=== PATIENT | female | born 1970 | race Two or more races ===

== ENCOUNTER 2019-02-17 10:40 | Day surgery (SDC) | payer MEDICAID ==
[~2019-02-17] VITALS: Ht 160 cm; Wt 77.1 kg
[~2019-02-17 10:40] MED LIST: DOCU-138 PO; FERR325T6 PO; LACTATED RINGERS 1,000 ML IV SCH; LORA10TA7 PO
[2019-02-17 12:03] LABS: BASOPHILS % 2.4 % (0.0-2.0); EOSINOPHILS % 0.4 % (0.0-5.0); HEMOGLOBIN. 8.6 g/dL (12.0-16.0); LYMPHOCYTES % 22.5 % (20.0-50.0); MEAN CORPUSCULAR HEMOGLOBIN 28.5 pg (28.0-32.0); MEAN CORPUSCULAR VOLUME 89.2 fL (81.0-99.0); MEAN PLATELET VOLUME 8.3 fl (7.4-10.4); MONOCYTES % 7.4 % (2.0-8.0); NEUTROPHILS % 67.3 % (40.0-76.0); PLATELET 270 x1000/uL (130-400); RED BLOOD CELL COUNT 3.03 mill/uL (4.2-5.4); RED CELL DISTRIBUTION WIDTH 17.9 % (11.6-14.6)
[2019-02-17 12:08] LABS: CHLORIDE 107 mEq/L (98-107)
[2019-02-17 12:10] LABS: PROTHROMBIN TIME 10.2 sec (9.6-11.0)
[2019-02-17] MEDS ORDERED: FENTANYL CITRATE/PF 50MCG/ML 2ML VIAL ONE (12:12)
[2019-02-17] MEDS ORDERED: PROPOFOL 200MG/20ML VIAL IV ONE (12:12)
[2019-02-17] MEDS ORDERED: ONDANSETRON HCL 4MG/2ML INJ ONE (12:12)
[2019-02-17] MEDS ORDERED: LIDOCAINE HCL/PF 1% 10 MG/ML 5ML VIAL ONE (12:12)
[2019-02-17] MEDS ORDERED: METOCLOPRAMIDE HCL 10MG/2ML VIAL ONE (12:12)
[2019-02-17] MEDS ORDERED: SUCCINYLCHOLINE CHLORIDE 200MG/10ML IV ONE (12:12)
[2019-02-17] MEDS ORDERED: MIDAZOLAM HCL 2 MG/2 ML VIAL ONE (12:12)
[2019-02-17] MEDS ORDERED: GLYCOPYRROLATE 0.2 MG/ML 2ML VIAL ONE (12:12)
[2019-02-17 12:15] LABS: HCG SCREEN NEGATIVE
[2019-02-17] MEDS ORDERED: MORPHINE SULFATE 2 MG/ML CPJ (NOT FOR IM USE) IV PRN (13:00)
[2019-02-17] MEDS ORDERED: ONDANSETRON HCL 4MG/2ML INJ IV PRN (13:00)
[2019-02-17] MEDS ORDERED: MEPERIDINE HCL/PF 25MG/ML CPJ IV PRN ×2 (13:00)
[2019-02-17] MEDS ORDERED: HYDROMORPHONE HCL/PF 2MG/ML CPJ IV PRN (13:00)
[2019-02-17] MEDS ORDERED: SODIUM CHLORIDE 0.9% 1,000 ML IV NR (13:35)
== END 2019-02-17 14:10 | disposition home or self-care (01) ==
LOC: OR 10:40
PROVIDERS: ATTEND Obstetrics & Gynecology
DX: N92.0 Excessive and frequent menstruation with regular cycle (principal); D25.9 Leiomyoma of uterus, unspecified; Z79.899 Other long term (current) drug therapy; F17.200 Nicotine dependence, unspecified, uncomplicated
CPT/HCPCS: 36415; 58558; 80053; 84703; 85025; 85610; 85730; 86850; 86900; 86901; 88305; J0330; J2250; J2405; J2704; J2765; J3010; J3490

== ENCOUNTER 2019-05-23 06:55 | Day surgery (SDC) | payer MEDICAID ==
[~2019-05-23] VITALS: Ht 160 cm; Wt 77.1 kg
[~2019-05-23 06:55] MED LIST changes: -LACTATED RINGERS 1,000 ML IV SCH
[2019-05-23] MEDS ORDERED: METHYLENE BLUE 50 MG/10 ML AMP IV ONE (07:41)
[2019-05-23] MEDS ORDERED: VASOPRESSIN 20 UNIT/ML 1ML ONE (07:41)
[2019-05-23] MEDS ORDERED: LACTATED RINGERS 1,000 ML IV SCH (07:45)
[2019-05-23 08:01] LABS: UCG SCREEN NEGATIVE
[2019-05-23 08:05] LABS: CHLORIDE 108 mEq/L (98-107)
[2019-05-23 08:07] LABS: PARTIAL THROMBOPLASTIN TIME 24.2 sec (23.4-31.0); PROTHROMBIN TIME 10.4 sec (9.6-11.0)
[2019-05-23 08:11] LABS: MEAN CORPUSCULAR HEMOGLOBIN 22.9 pg (28.0-32.0); MEAN CORPUSCULAR VOLUME 73.9 fL (81.0-99.0); MEAN PLATELET VOLUME 8.2 fl (7.4-10.4); PLATELET 344 x1000/uL (130-400); RED BLOOD CELL COUNT 2.74 mill/uL (4.2-5.4); RED CELL DISTRIBUTION WIDTH 20.2 % (11.6-14.6)
[2019-05-23 08:18] LABS: HEMOGLOBIN. 6.3 g/dL (12.0-16.0)
[2019-05-23 08:19] LABS: HEMATOCRIT. 20.2 % (36.0-48.0)
[2019-05-23 09:04] LABS: PLATELET ESTIMATE NORMAL
[2019-05-23 09:49] LABS: MEAN CORPUSCULAR VOLUME 74.6 fL (81.0-99.0); PLATELET 346 x1000/uL (130-400); RED CELL DISTRIBUTION WIDTH 20.3 % (11.6-14.6)
[2019-05-23 09:57] LABS: HEMATOCRIT 20.1 % (36.0-48.0); HEMOGLOBIN 6.2 g/dL (12.0-16.0)
[2019-05-23] MEDS ORDERED: HYDRALAZINE 20MG/ML VIAL ONE (11:31)
[2019-05-23] MEDS ORDERED: DIPHENHYDRAMINE 50MG/ML VIAL ONE (11:32)
[2019-05-23] MEDS ORDERED: DIPHENHYDRAMINE 50MG/ML VIAL IV ONE (11:45)
[2019-05-23] MEDS ORDERED: DIPHENHYDRAMINE 50MG/ML VIAL IV NR (11:45)
[2019-05-23] MEDS ORDERED: HYDRALAZINE 20MG/ML VIAL IV NR (11:45)
[2019-05-23] MEDS ORDERED: HYDRALAZINE 20MG/ML VIAL IV ONE ×2 (11:45→12:15)
[2019-05-23 12:16] LABS: HEMATOCRIT 23.2 % (36.0-48.0); HEMOGLOBIN 7.5 g/dL (12.0-16.0); MEAN CORPUSCULAR HEMOGLOBIN 24.5 pg (28.0-32.0); MEAN CORPUSCULAR VOLUME 75.8 fL (81.0-99.0); PLATELET 335 x1000/uL (130-400); RED BLOOD CELL COUNT 3.06 mill/uL (4.2-5.4); RED CELL DISTRIBUTION WIDTH 20.5 % (11.6-14.6)
[2019-05-23 12:29] LABS: CLARITY URINE CLEAR (CLEAR); COLOR URINE YELLOW (YELLOW); KETONES URINE 1+ (NEGATIVE); LEUKOCYTE ESTERASE URINE NEGATIVE (NEGATIVE); NITRITE URINE NEGATIVE (NEGATIVE); OCCULT BLOOD URINE 3+ (NEGATIVE); PROTEIN URINE TRACE (NEGATIVE); SPECIFIC GRAVITY URINE 1.018 (1.005-1.030); UROBILINOGEN URINE 0.2 E.U./dL (0.2-1.0)
[2019-05-23] MEDS ORDERED: FENTANYL CITRATE/PF 50MCG/ML 2ML VIAL ONE (12:39)
[2019-05-23] MEDS ORDERED: MIDAZOLAM HCL 2 MG/2 ML VIAL ONE (12:39)
[2019-05-23] MEDS ORDERED: LIDOCAINE HCL/PF 1% 10 MG/ML 5ML VIAL ONE (12:46)
[2019-05-23] MEDS ORDERED: PROPOFOL 200MG/20ML VIAL IV ONE (12:46)
[2019-05-23] MEDS ORDERED: ROCURONIUM BROMIDE 10MG/ML VIAL 5ML IV ONE (12:49)
[2019-05-23] MEDS ORDERED: ESMOLOL HCL 10MG/ML 10ML VIAL IV ONE (12:52)
[2019-05-23] MEDS ORDERED: METOCLOPRAMIDE HCL 10MG/2ML VIAL ONE (13:25)
[2019-05-23] MEDS ORDERED: DEXAMETHASONE 4MG/ML 1ML VIAL ONE (13:25)
[2019-05-23] MEDS ORDERED: ONDANSETRON HCL 4MG/2ML INJ ONE (13:26)
[2019-05-23] MEDS ORDERED: CEFAZOLIN SODIUM 1000MG/VIAL ONE (13:27)
[2019-05-23] MEDS ORDERED: SODIUM CHLORIDE 0.9% 10ML VIAL ONE ×3 (13:27→13:52)
[2019-05-23] MEDS ORDERED: EPHEDRINE SULFATE 50MG/ML VIAL ONE (13:33)
[2019-05-23] MEDS ORDERED: PHENYLEPHRINE HCL 10 MG/ML 1ML (IV VIAL) IV ONE (13:51)
[2019-05-23] MEDS ORDERED: HYDROMORPHONE HCL/PF 2MG/ML CPJ IV PRN (14:45)
[2019-05-23] MEDS ORDERED: IBUP-2030 MT (15:57)
== END 2019-05-23 16:05 | disposition home or self-care (01) ==
LOC: OR 06:55 → EDSTATUS 09:00 → OR 16:05
PROVIDERS: ATTEND Obstetrics & Gynecology
DX: D25.9 Leiomyoma of uterus, unspecified (principal); N92.4 Excessive bleeding in the premenopausal period; I10 Essential (primary) hypertension; Z79.899 Other long term (current) drug therapy; Z98.891 History of uterine scar from previous surgery; Z98.890 Other specified postprocedural states
CPT/HCPCS: 36415; 58561; 80048; 81003; 81025; 85025; 85027; 85610; 85730; 86850; 86900; 86901; 86920; 88305; J0360; J0690; J1100; J1200; J2250; J2370; J2405; J2704; J2765; J3010; J3490; P9016; Q9968

== ENCOUNTER 2020-10-28 17:06 | Emergency (ER) | payer MEDICAID ==
[~2020-10-28] VITALS: Ht 162.6 cm; Wt 74.0 kg
[~2020-10-28 17:06] MED LIST changes: -DOCU-138 PO; +FERR325T23 PO; -FERR325T6 PO; +IBUP-2030 MT; +LABE200T9 PO; +MULT-1146 MT
[2020-10-28 17:14] VITALS: BP 134/84
== END 2020-10-28 21:29 | disposition left against medical advice (07) ==
LOC: ER 17:06
DX: R68.89 Other general symptoms and signs (principal); Z53.21 Procedure and treatment not carried out due to patient leaving prior to being seen by health care provider

== ENCOUNTER 2023-09-09 21:11 | Emergency (ER) | payer MEDICAID ==
[~2023-09-09] VITALS: Ht 160 cm; Wt 68.0 kg
[2023-09-09 21:43] VITALS: O2SAT 97
[2023-09-10] MEDS: ACETAMINOPHEN 325MG TABLET PO NR (00:50)
[2023-09-10 01:22] LABS: BASOPHILS % 3.1 % (0.0-2.0); EOSINOPHILS % 2.8 % (0.0-5.0); HEMATOCRIT. 25.4 % (36.0-48.0); HEMOGLOBIN. 8.1 g/dL (12.0-16.0); LYMPHOCYTES % 38.7 % (20.0-50.0); MEAN CORPUSCULAR HEMOGLOBIN 26.9 pg (28.0-32.0); MEAN CORPUSCULAR HGB CONC 31.8 g/dL (31.0-37.0); MEAN CORPUSCULAR VOLUME 84.5 fL (81.0-99.0); MONOCYTES % 10.1 % (2.0-8.0); NEUTROPHILS % 45.3 % (40.0-76.0); PLATELET 244 x1000/uL (130-400); RED BLOOD CELL COUNT 3.01 mill/uL (4.2-5.4); RED CELL DISTRIBUTION WIDTH 20.9 % (11.6-14.6); WHITE BLOOD COUNT 7.2 x1000/uL (4.5-11.0)
[2023-09-10 01:45] LABS: ALANINE AMINOTRANSFERASE 26 IU/L (10-49); ALBUMIN 4.8 g/dL (3.2-4.8); ASPARTATE AMINOTRANSFERASE 94 IU/L (<34); BILIRUBIN TOTAL 0.5 mg/dL (0.1-1.0); CALCIUM 9.3 mg/dL (8.7-10.4); CARBON DIOXIDE 26 mEq/L (21-32); CHLORIDE 105 mEq/L (98-107); CREATININE 0.6 mg/dL (0.6-1.0); ETHANOL BLOOD 303 mg/dL (<10); GLUCOSE 90 mg/dL (70-105); POTASSIUM 3.9 mEq/L (3.5-5.1); SODIUM 139 mEq/L (136-145); UREA NITROGEN BLOOD 13 mg/dL (9-23)
[2023-09-10 01:48] LABS: PROTEIN TOTAL 9.2 g/dL (6.0-8.3)
[2023-09-10] MEDS ORDERED: NAPR-681 PO (02:02)
[2023-09-10] MEDS ORDERED: AMOX1TAB16 MT (02:02)
[2023-09-10 02:32] VITALS: BP 138/96; PULSE 85; RESP 16; TEMP 97.7
== END 2023-09-10 02:38 | disposition home or self-care (01) ==
LOC: ER 21:11
DX: S61.451A Open bite of right hand, initial encounter (principal); M79.641 Pain in right hand; R60.9 Edema, unspecified; D64.9 Anemia, unspecified; W54.0XXA Bitten by dog, initial encounter; Y93.89 Activity, other specified; Y92.89 Other specified places as the place of occurrence of the external cause; Y99.8 Other external cause status
CPT/HCPCS: 36415; 73030; 73130; 80053; 80320; 83605; 84145; 85025; 93971; 99284; G0480

== ENCOUNTER 2025-06-11 16:14 | Emergency (ER) | payer MEDICAID ==
[~2025-06-11] VITALS: Ht 160 cm; Wt 66.0 kg
[~2025-06-11 16:14] MED LIST changes: -IBUP-2030 MT
[2025-06-11 16:24] VITALS: TEMP 36.8; O2SAT 100
[2025-06-11 18:14] LABS: HEMATOCRIT. 26.2 % (36.0-48.0); HEMOGLOBIN. 8.3 g/dL (12.0-16.0); MEAN PLATELET VOLUME 8.7 fl (7.4-10.4); PLATELET 169 x1000/uL (130-400); RED BLOOD CELL COUNT 3.35 mill/uL (4.2-5.4); RED CELL DISTRIBUTION WIDTH 23.5 % (11.6-14.6)
[2025-06-11 18:29] LABS: CREATININE 0.5 mg/dL (0.6-1.0)
[2025-06-11 18:30] LABS: ETHANOL BLOOD < 10 mg/dL (<10); PROTEIN TOTAL 8.4 g/dL (6.0-8.3); UREA NITROGEN BLOOD 6 mg/dL (9-23)
[2025-06-11 18:31] LABS: ASPARTATE AMINOTRANSFERASE 184 IU/L (<34)
[2025-06-11 18:32] LABS: BILIRUBIN DIRECT 1.5 mg/dL (<=3.0); BILIRUBIN TOTAL 2.9 mg/dL (0.1-1.0)
[2025-06-11 18:33] LABS: HCG SCREEN NEGATIVE
[2025-06-11 18:36] LABS: EOSINOPHILS % MANUAL 3.0 % (0.0-5.0); LYMPHOCYTES % MANUAL 18.0 % (20.0-60.0); MONOCYTES % MANUAL 13.0 % (2.0-8.0); NEUTROPHILS % MANUAL 66.0 % (45.0-75.0); PLATELET ESTIMATE NORMAL
[2025-06-11 19:41] LABS: *AMPHETAMINES SCREEN URINE NEGATIVE (NEGATIVE); *BARBITURATES SCREEN URINE NEGATIVE (NEGATIVE); *BENZODIAZEPINES SCREEN URINE NEGATIVE (NEGATIVE)
[2025-06-11 19:42] LABS: *COCAINE SCREEN URINE NEGATIVE (NEGATIVE); CANNABINOID URINE SCREEN PRESUMPTIVE POSITIVE (NEGATIVE); ECSTASY MDMA SCREEN URINE NEGATIVE (NEGATIVE); METHADONE URINE SCREEN NEGATIVE (NEGATIVE); OPIATES URINE SCREEN NEGATIVE (NEGATIVE); PHENCYCLIDINE URINE SCREEN NEGATIVE (NEGATIVE)
[2025-06-11 20:19] LABS: INR 1.3
[2025-06-11] MEDS: HYDROCODONE/ACETAMINOPHEN 5/325MG TABLET PO ONE (20:22)
[2025-06-11 22:15] VITALS: BP 155/78; PULSE 81; RESP 18; O2SAT 100
== END 2025-06-11 22:37 | disposition short-term general hospital (02) ==
LOC: ER 16:14 → EDBEDREQ 21:13 → EDBEDREQTM 21:13 → ER 22:37 → CMPBEDREQ 22:49
DX: K74.60 Unspecified cirrhosis of liver (principal); R18.8 Other ascites; D64.9 Anemia, unspecified; R06.02 Shortness of breath; F17.200 Nicotine dependence, unspecified, uncomplicated; Z79.899 Other long term (current) drug therapy; Z98.890 Other specified postprocedural states; Z90.711 Acquired absence of uterus with remaining cervical stump
CPT/HCPCS: 36415; 76705; 80048; 80076; 80305; 80320; 83880; 84703; 85025; 86850; 86900; 93005; 99285; G0480